=== PATIENT | male | born 1995 | race American Indian/Alaskan Native ===

== ENCOUNTER 2020-05-30 22:01 | Emergency (ER) | payer OTHER ==
[2020-05-30 22:13] VITALS: BP 137/82
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
== END 2020-05-30 23:50 | disposition home or self-care (01) ==
LOC: ED 22:01
DX: S31.815A Open bite of right buttock, initial encounter (principal); Z79.899 Other long term (current) drug therapy; W54.0XXA Bitten by dog, initial encounter; Y93.89 Activity, other specified; Y92.89 Other specified places as the place of occurrence of the external cause; Y99.8 Other external cause status
CPT/HCPCS: 99282

== ENCOUNTER 2021-02-06 17:01 | Emergency (ER) | payer SELFPAY ==
[2021-02-06 17:06] VITALS: BP 132/78
[2021-02-06] MEDS ORDERED: TETANUS,DIPH,PERTUSS(ACELL) VACCINE 0.5 ML SYRINGE IM ONE (17:09)
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
[2021-02-06] MEDS ORDERED: LIDOCAINE (1%) 10 MG/1 ML VIAL 20 ML MDV INFILTRATI ONE (17:57)
[2021-02-06] MEDS ORDERED: cephALEXin 500 MG CAP PO ONE (17:57)
[2021-02-06] MEDS ORDERED: NEOMY 3.5 MG/BACIT 400 UNITS/POLY B 5000 UNITS/GM OINT PACKET TP ONE (17:58)
== END 2021-02-06 20:25 | disposition home or self-care (01) ==
LOC: ED 17:01
DX: S71.112A Laceration without foreign body, left thigh, initial encounter (principal); F17.200 Nicotine dependence, unspecified, uncomplicated; Z79.899 Other long term (current) drug therapy; Y08.89XA Assault by other specified means, initial encounter; Y93.89 Activity, other specified; Y92.89 Other specified places as the place of occurrence of the external cause; Y99.8 Other external cause status
CPT/HCPCS: 12001; 73552; 90471; 90715; 99283; A6250

== ENCOUNTER 2021-02-19 07:41 | Emergency (ER) | payer SELFPAY ==
[2021-02-19 08:04] VITALS: BP 133/70
--- NOTE | 2021-02-19 08:44 | Emergency Department Report ---
Suture/Staple Removal - HPI Chief Complaint: Laceration/Recheck/Suture Stated Complaint: STITCHES REMOVAL Time Seen by Provider: 02/19/21 08:25 When Sutures or [place] Placed: 8-10 Days Ago ED Review of Systems ROS: Stated complaint: STITCHES REMOVAL Other details as noted in HPI Comment: All other systems reviewed and negative ED Past Medical Hx - Social History Smoking Status: Current Every Day Smoker Substance Use Type: None - Medications Home Medications: Home Medications Medication Instructions Recorded Confirmed Last Taken Type Amoxicillin/Potassium Clav 1 each PO BID #20 tablet 05/30/20 Unknown Rx [Augmentin 875-125 Tablet] cephALEXin [Keflex] 500 mg PO Q8HR 5 Days cap 02/06/21 Unknown Rx Suture Removal Exam - Exam General: Vital signs noted. No distress. Alert and acting appropriately. Wound: No Pathologic Erythema, No Tenderness, No Drainage, No Pus, No Wound Dehiscence Other Systems: All other systems reviewed and are unremarkable. ED Course Vital Signs 02/19/21 08:03 Temperature 99 F Pulse Rate 60 Respiratory 16 Rate Blood Pressure 133/70 [Right] O2 Sat by Pulse 100 Oximetry ED Recheck MDM - Differential Diagnosis Suture/Staple Removal Critical care attestation.: If time is entered above; I have spent that time in minutes in the direct care of this critically ill patient, excluding procedure time. ED Disposition Clinical Impression: Visit for suture removal Disposition: DC-01 TO HOME OR SELFCARE Is pt being admited?: No Does the pt Need Aspirin: No Condition: Stable Additional Instructions: Keep area clean and dry. Referrals: PRIMARY CARE, [Primary Care Provider] - 3-5 Days Forms: Work/School Release Form(ED)
== END 2021-02-19 08:32 | disposition home or self-care (01) ==
LOC: ED 07:41
DX: S71.112D Laceration without foreign body, left thigh, subsequent encounter (principal); X58.XXXD Exposure to other specified factors, subsequent encounter